=== PATIENT | male | born 1985 | race American Indian/Alaskan Native ===

== ENCOUNTER 2016-06-03 08:39 | Emergency (ER) | payer OTHER ==
[2016-06-03 08:54] VITALS: BP 135/61; PULSE 98; RESP 18; TEMP 98.5; O2SAT 100
[2016-06-03 08:57] VITALS: BMI 32.7
--- NOTE | 2016-06-03 09:04 | ED PDOC ---
Arrival/HPI - General Chief Complaint: Chest Pain Time Seen by Provider: 06/03/16 08:55 Historian: Patient - History of Present Illness Time/Duration: Prior to Arrival Symptom Course: Resolved Quality: Stabbing Severity Level: Mild Activities at Onset: Sleeping Associated Symptoms (Text): 06/03/16 09:02 Patient reports that he woke up from sleep this morning with left-sided chest pain which was made worse by certain shoulder movements. The pain has since completely resolved. No dyspnea. No diaphoresis. No nausea or vomiting. No dizziness or lightheadedness. Patient has had similar episodes previously. He does a lot of heavy lifting at work. He reports that he was concerned and wanted to have it checked out even though the pain is completely resolved. Past Medical History - Pulmonary Hx Asthma: Yes - Psychiatric Hx Psychophysiologic Disorder: No Hx Substance Use: No - Surgical History Hx Tonsillectomy: Yes Family/Social History - Physician Review Nursing Documentation Reviewed: Yes Family/Social History: Unknown Family HX Smoking Status: Current Some Days Smoker Hx Alcohol Use: Yes Hx Substance Use: Yes (Marijuana) Allergies/Home Meds Allergies/Adverse Reactions: Allergies Penicillins Allergy (Verified 06/03/16 08:57) RASH Home Medications: Home Meds Medication Instructions Recorded Confirmed No Known Home Med 06/03/16 06/03/16 Review of Systems - Physician Review All systems were reviewed & negative as marked: Yes - Review of Systems Respiratory: absent: SOB, Cough, Sputum, Wheezing Cardiovascular: Chest Pain. absent: Palpitations, Syncope Gastrointestinal: absent: Abdominal Pain, Nausea, Vomiting Neurological: absent: Headache, Dizziness Physical Exam Vital Signs Temp Pulse Resp BP Pulse Ox 06/03/16 08:53 98.5 F 98 H 18 135/61 100 Temperature: Afebrile Blood Pressure: Normal Pulse: Regular Respiratory Rate: Normal Appearance: Positive for: Well-Appearing, Non-Toxic, Comfortable Pain Distress: None Mental Status: Positive for: Alert and Oriented X 3 - Systems Exam Head: Present: Atraumatic, Normocephalic Pupils: Present: PERRL Extroacular Muscles: Present: EOMI Conjunctiva: Present: Normal Mouth: Present: Moist Mucous Membranes Pharnyx: No: ERYTHEMA, EXUDATE, TONSILS ENLARGED Neck: Present: Normal Range of Motion. No: MIDLINE TENDERNESS, Paraspinal Tenderness Respiratory/Chest: Present: Clear to Auscultation, Good Air Exchange. No: Respiratory Distress, Accessory Muscle Use, Tender to Palpation Cardiovascular: Present: Regular Rate and Rhythm, Normal S1, S2. No: Murmurs Abdomen: Present: Normal Bowel Sounds. No: Tenderness, Distention, Peritoneal Signs, Rebound, Guarding Back: Present: Normal Inspection. No: Midline Tenderness, Paraspinal Tenderness Upper Extremity: Present: Normal Inspection. No: Cyanosis, Edema Neurological: Present: GCS=15, CN II-XII Intact, Speech Normal, Motor Func Grossly Intact Skin: Present: Warm, Dry, Normal Color. No: Rashes Psychiatric: Present: Alert, Oriented x 3, Normal Insight, Normal Concentration Medical Decision Making ED Course and Treatment: 06/03/16 09:04 EKG shows normal sinus rhythm rate approximately 65 with a nonspecific intraventricular conduction delay and no acute ST or T-wave changes 06/03/16 09:53 Nonspecific chest pain related to movement this morning which has completely resolved. Discharged to follow-up with PMD. Follow-up in the ER as needed. Over- the-counter Advil or Aleve as needed.. - RAD Interpretation Radiology Orders: 06/03/16 09:00 CHEST TWO VIEWS (PA/LAT) [RAD] Stat Chest 2 views shows no infiltrate effusion cardiomegaly or pneumothorax Food Runner: ED Physician Disposition/Present on Arrival - Present on Arrival Any Indicators Present on Arrival: No History of DVT/PE: No History of Uncontrolled Diabetes: No Urinary Catheter: No History of Decub. Ulcer: No History Surgical Site Infection Following: None - Disposition Have Diagnosis and Disposition been Completed?: Yes Diagnosis: Chest pain Disposition: HOME/ ROUTINE Disposition Time: 09:54 Patient Plan: Discharge Condition: GOOD Discharge Instructions (ExitCare): Chest Pain (ED) Additional Instructions: Advil or Aleve [id number] as directed on bottle as needed. Follow-up with PMD. Follow up in ER as needed.
--- NOTE | 2016-06-03 09:28 | RAD ---
HISTORY: cp COMPARISON: No prior. TECHNIQUE: Chest PA and lateral FINDINGS: LUNGS: No active pulmonary disease. PLEURA: No significant pleural effusion identified. No pneumothorax apparent. CARDIOVASCULAR: Normal. OSSEOUS STRUCTURES: No significant abnormalities. VISUALIZED UPPER ABDOMEN: Normal. OTHER FINDINGS: None. IMPRESSION: No active disease.
--- NOTE | 2016-06-04 13:18 | CARD ---
APPROVED REPORT EKG Measurement Heart [id number] <Conclusion> Normal sinus rhythm with sinus arrhythmia Left axis deviation Nonspecific intraventricular conduction delay
== END 2016-06-03 10:04 | disposition home or self-care (01) ==
LOC: ED 08:39
DX: R07.9 Chest pain, unspecified (principal)